=== PATIENT | female | born 1950 ===

== ENCOUNTER 2016-11-06 07:10 | Emergency (ER) | payer MEDICARE ==
[2016-11-06 07:27] VITALS: BP 121/75
--- NOTE | 2016-11-06 07:38 | UC ---
Dental HPI - HPI Summary HPI Summary: Dental pain x 1 week, right lower back molar, increase with chewing, improves with Ibuprofen , no fever, no chills - History of Current Complaint Chief Complaint: UCDentalProblem Stated Complaint: DENTAL COMPLAINT Time Seen by Provider: 11/06/16 07:27 Hx Obtained From: Patient Onset/Duration: Gradual Onset, Lasting Days - 7, Still Present Severity: Moderate Aggravating: Cold, Chewing Alleviating: OTC Meds Dental: 1 - tenderness - Allergies/Home Medications Allergies/Adverse Reactions: Allergies Allergy/AdvReac Type Severity Reaction Status Date / Time Penicillins Allergy Unknown Verified 11/06/16 07:21 Reaction Details Home Medications: Home Medications Alendronate TAB (NF) [Fosamax TAB (NF)] 11/06/16 [History] Ibuprofen TAB* [Advil TAB*] 1 tab PO 11/06/16 [History] Simvastatin TAB(NF) [Zocor 20 MG (NF)] 1 tab PO DAILY 11/06/16 [History Confirmed 11/06/16] PMH/Surg Hx/FS Hx/Imm Hx - Additional Past Medical History Additional PMH: osteoprosis - Surgical History Surgical History: Yes Surgery Procedure, Year, and Place: TONSILS. WRIST - Family History Known Family History: Negative: Diabetes - Social History Alcohol Use: None Substance Use Type: None Smoking Status (MU): Never Smoked Tobacco Review of Systems Constitutional: Negative Skin: Negative Eyes: Negative ENT: Dental Pain Respiratory: Negative Cardiovascular: Negative All Other Systems Reviewed And Are Negative: Yes Physical Exam Triage Information Reviewed: Yes Appearance: Well-Appearing, No Pain Distress, Well-Nourished Vital Signs: Initial Vital Signs Temp 97.7 F 11/06/16 07:23 Pulse 57 11/06/16 07:23 Resp 16 11/06/16 07:23 BP 121/75 11/06/16 07:23 Pulse Ox 97 11/06/16 07:23 Vital Signs Reviewed: Yes Eyes: Positive: Conjunctiva Clear ENT: Positive: Normal ENT inspection, Hearing grossly normal, Pharynx normal Dental: Positive: Percussion Tenderness @ - #31, Gross Decay/Caries @ - # 31 Dental Complaint Course/Dx - Differential Dx/Diagnosis Provider Diagnoses: Dental pain Discharge - Discharge Plan Condition: Stable Disposition: HOME Prescriptions: Acetaminop/Codeine 30 MG TAB* [Tylenol/Codeine 30 MG TAB*] 1 tab PO Q8H PRN #21 tab MDD 3 PRN Reason: Pain Amoxicillin (*) [Amoxicillin 875 MG (*)] 875 mg PO BID #20 tab Patient Education Materials: Toothache (ED) Additional Instructions: follow up with your dentist in 5 days
== END 2016-11-06 07:54 | disposition home or self-care (01) ==
LOC: UCEAST 07:10 → MERGE 07:10 → UCEAST 07:54
DX: K08.89 Other specified disorders of teeth and supporting structures (principal); Z88.0 Allergy status to penicillin
CPT/HCPCS: 99202; G0463